=== PATIENT | male | born 1960 | race Caucasian/White ===

== ENCOUNTER 2017-09-08 05:53 | Emergency (ER) | payer MEDICAID ==
[~2017-09-08] VITALS: Ht 182.9 cm; Wt 104.3 kg
[2017-09-08] MEDS ORDERED: SODIUM CHLORIDE 0.9% 1,000 ML IV ONE (07:20)
[2017-09-08] MEDS ORDERED: PROMETHAZINE HCL 25 MG/ML 1ML IV PRN (07:30)
[2017-09-08] MEDS ORDERED: KETOROLAC TROMETH 30 MG/ML 1ML VIAL IV ONE (07:30)
[2017-09-08 07:37] LABS: Urine Bacteria NONE SEEN /hpf (None Seen); Urine Blood Negative /uL (Negative); Urine Mucus FEW (None Seen); Urine Specific Gravity 1.021 (1.001-1.035); Urine WBC 2 /hpf (0 - 3)
[2017-09-08 07:42] LABS: Basophils # (auto) 0.1 uL; Basophils % (auto) 0.4 % (0.0-2.0); Eosinophils # (auto) 0.1 uL; Eosinophils % (auto) 0.5 % (0.0-7.0); Hematocrit 43.6 % (41.0-53.0); Hemoglobin 14.4 g/dL (13.5-17.5); Lymphocytes % (auto) 7.8 % (10.0-50.0); Mean Corpuscular Hemoglobin 29.6 pg (28.0-32.0); Mean Corpuscular Hgb Conc. 33.1 g/dL (32.0-36.0); Mean Corpuscular Volume 89.5 fL (80.0-100.0); Monocytes # (auto) 0.8 uL; Monocytes % (auto) 6.4 % (0.0-12.0); Neutrophils # (auto) 10.9 uL; Neutrophils % (auto) 84.9 % (37.0-80.0); Nucleated Red Blood Cells % 0.1 %; Platelet Count (auto) 272 10^3/uL (140-450); Red Blood Cells 4.88 10^6/uL (4.5-5.90); Red Cell Distribution Width 14.3 % (11.8-14.3); White Blood Cell 12.8 10^3/uL (4.4-10.8)
[2017-09-08 08:04] LABS: Alanine Aminotransferase 21 U/L (16-61); Albumin 3.7 g/dL (3.4-5.0); Alkaline Phosphatase 98 U/L (45-117); Anion Gap 8 (5-15); Aspartate Aminotransferase 14 U/L (15-37); BUN/Creatinine Ratio 24.4; Bilirubin, Total 0.5 mg/dL (0.2-1.0); Blood Urea Nitrogen 29 mg/dL (7-18); Calcium 9.1 mg/dL (8.5-10.1); Carbon Dioxide 23 mmol/L (21-32); Chloride 102 mmol/L (98-107); GFR African American 81 mL/min; GFR Non-African American 67 mL/min; Glucose 119 mg/dL (74-106); Lipase 168 U/L (73-393); Magnesium 2.5 mg/dL (1.6-2.6); Potassium 4.3 mmol/L (3.5-5.1); Sodium 133 mmol/L (136-145); Total Protein 7.4 g/dL (6.4-8.2)
[2017-09-08 09:44] VITALS: BP 120/66
[2017-09-08] MEDS ORDERED: ONDANSETRON ODT 4 MG TAB PO ONE (10:00)
== END 2017-09-08 10:05 | disposition home or self-care (01) ==
LOC: EDBD 05:53 → ER 05:53
DX: K80.20 Calculus of gallbladder without cholecystitis without obstruction (principal); D72.829 Elevated white blood cell count, unspecified; J44.9 Chronic obstructive pulmonary disease, unspecified; I50.9 Heart failure, unspecified; R11.2 Nausea with vomiting, unspecified
CPT/HCPCS: 36415; 71046; 74176; 80053; 81001; 83690; 83735; 84443; 84484; 85025; 96361; 96374; 96375; 99285; J1885; J2550; J7030; Q0162

== ENCOUNTER 2017-11-13 07:01 | Emergency (ER) | payer MEDICAID ==
[~2017-11-13] VITALS: Ht 182.9 cm; Wt 108.9 kg
[2017-11-13 07:30] VITALS: BP 113/82
[2017-11-13 07:49] LABS: Urine Bacteria FEW /hpf (None Seen); Urine Blood Negative /uL (Negative); Urine Mucus FEW (None Seen); Urine Specific Gravity 1.022 (1.001-1.035); Urine WBC 2 /hpf (0 - 3)
[2017-11-13] MEDS ORDERED: KETOROLAC TROMETH 60MG/2ML VIAL IM ONE (08:00)
[2017-11-13] MEDS ORDERED: HYDROcodone-ACET 10/325MG TAB PO ONE (08:00)
== END 2017-11-13 10:03 | disposition home or self-care (01) ==
LOC: ER 07:01
DX: M54.5 Low back pain (principal); M79.1 Myalgia; J02.9 Acute pharyngitis, unspecified; J44.9 Chronic obstructive pulmonary disease, unspecified; I13.0 Hypertensive heart and chronic kidney disease with heart failure and stage 1 through stage 4 chronic kidney disease, or unspecified chronic kidney disease; N18.9 Chronic kidney disease, unspecified
CPT/HCPCS: 71046; 72070; 72100; 81001; 93005; 96372; 99285; J1885

== ENCOUNTER 2018-04-15 21:24 | Inpatient (IN) | payer MEDICAID | END 2018-04-19 13:30 | disposition home or self-care (01) | LOC: CENTRAL 04-16 23:00 → OVERFLOW 04-16 03:46 → ER 21:24 → CENTRAL 04-16 05:12 | DX: J44.1 Chronic obstructive pulmonary disease with (acute) exacerbation (principal); N17.0 Acute kidney failure with tubular necrosis; I50.42 Chronic combined systolic (congestive) and diastolic (congestive) heart failure; I10 Essential (primary) hypertension; J45.909 Unspecified asthma, uncomplicated; R06.03 Acute respiratory distress; N18.9 Chronic kidney disease, unspecified; M54.9 Dorsalgia, unspecified; E66.9 Obesity, unspecified; H00.019 Hordeolum externum unspecified eye, unspecified eyelid ==

== ENCOUNTER 2018-08-30 14:33 | Emergency (ER) | payer MEDICAID ==
[~2018-08-30] VITALS: Ht 177.8 cm; Wt 90.7 kg
[~2018-08-30 14:33] MED LIST: CAR3125T PO; FAM20T PO; FURO40TA PO; GABA300C10 PO; HYDR50TA15 PO; SPIR50TA2 PO
[2018-08-30 14:40] VITALS: BP 130/76
[2018-08-30] MEDS ORDERED: SODIUM CHLORIDE 0.9% 1,000 ML IVB ONE (14:41)
[2018-08-30] MEDS ORDERED: MORPHINE SULFATE 4 MG/ML SYR/VIAL IV ONE (14:45)
[2018-08-30] MEDS ORDERED: FAMOTIDINE (10MG/ML) 2ML VL IV ONE (14:45)
[2018-08-30] MEDS ORDERED: ONDANSETRON HCL 4 MG/2 ML VIAL IV ONE (14:45)
== END 2018-08-30 16:40 | disposition left against medical advice (07) ==
LOC: EDBD 14:33 → ER 14:33
DX: R10.84 Generalized abdominal pain (principal); R11.2 Nausea with vomiting, unspecified; I11.0 Hypertensive heart disease with heart failure; I50.9 Heart failure, unspecified; J44.9 Chronic obstructive pulmonary disease, unspecified; F17.210 Nicotine dependence, cigarettes, uncomplicated; Z79.899 Other long term (current) drug therapy
CPT/HCPCS: 94761